=== PATIENT | female | born 1950 | race Caucasian/White ===

== ENCOUNTER 2018-09-15 22:17 | Emergency (ER) | payer MEDICARE, MEDICAID ==
[~2018-09-15] VITALS: Ht 157.4 cm; Wt 81.6 kg
--- NOTE | ~2018-09-15 | EKG ---
[place], [place] ELECTROCARDIOGRAM REPORT NAME: MELITON FREEMAN UNIT #: [id number] ROOM: DOCTOR: EPIPHANY DRAFT REPORT BIRTHDATE: [birth year] [facility] Test Date: 2018-09-15 Test Time: 23:12:36 Pat Name: MELITON FREEMAN Department: ER Room: Gender: F Demographer: 54 : 1950 Requested By: BECCA OLEARY Order Number: [id number] Reading MD: Priyank Sánchez MD Measurements Intervals [place] Rate: 95 P: 6 AR: 126 QRS: -6 QRSD: 85 T: 59 QT: 372 QTc: 468 Interpretive Statements Sinus rhythm Abnormal R-wave progression, early transition Minimal ST depression, lateral leads Electronically Signed On 09-16-2018 11:26:32 PST by Priyank Sánchez MD CM:EKGRPT:ELECTROCARDIOGRAM REPORT [id number] BECCA OLEARY MD EPIPHANY DRAFT REPORT BECCA OLEARY MD
[~2018-09-15 22:17] MED LIST: BENADRYL50 MG PO; CLARITIN10 MG PO; CLINDAMYCIN HC300 MG PO; GLIPIZIDE10 MG PO; Janumet 1000 MG1 TAB PO; KEFLEX500 MG PO; LANTUS100 U/ML SC; LIDEX0.05% T; LISINOPRIL40 MG PO; MEDROL DOSEPAK4 MG PO; NEXIUM40 MG PO; PEPCID20 MG PO; PREDNICOT20 MG PO; ULTRAM50 MG PO; VICODIN 5/500 505 MG PO
[2018-09-15] MEDS ORDERED: AMLODIPINE BESYL5 MG PO (22:24)
[2018-09-15] MEDS ORDERED: TRESIBA100 UNIT/1 SQ (22:25)
[2018-09-15 23:14] LABS: BASO % 0.3 % (0.0-1.0); EOS % 0.1 % (1.0-4.0); HEMATOCRIT 36.4 % (37.0-47.0); HEMOGLOBIN 11.4 g/dl (12.0-16.0); LYMPH # 0.8 10*3/uL (1.3-4.4); LYMPH % 10.8 % (27.0-41.0); MEAN CELL VOLUME 89.7 fl (81.0-99.0); MEAN CORPUSCULAR HGB 28.1 pg (27.0-31.0); MEAN CORPUSCULAR HGB CONC 31.3 g/dl (33.0-37.0); MEAN PLATELET VOLUME 12.2 fl (9.6-12.3); MONO # 0.1 10*3/uL (0.1-1.0); MONO % 0.8 % (3.0-9.0); NEUT # 6.3 10*3/uL (2.3-7.9); NEUT % 87.7 % (47.0-73.0); PLATELET COUNT AUTOMATED 111 10*3/uL (130-400); RED BLOOD COUNT 4.06 10*6/uL (4.10-5.10); RED CELL DISTRI WIDTH 14.6 % (0-14.5); WHITE BLOOD COUNT 7.2 10*3/uL (4.8-10.8)
[2018-09-15 23:31] LABS: ALBUMIN 3.3 gm/dl (3.1-4.5); ALKALINE PHOSPHATASE 183 U/L (45-117); BUN 15 mg/dl (7-24); CHLORIDE 103 mmol/L (98-107); CREATININE 1.54 mg/dL (0.55-1.02); SGOT/AST 66 IU/L (3-35); SGPT/ALT 73 U/L (12-78); SODIUM 135 mmol/L (136-145); TOTAL PROTEIN 7.3 gm/dL (6.4-8.2)
[2018-09-15 23:35] LABS: TROPONIN I < 0.015 ng/ml (<0.045)
[2018-09-16] MEDS ORDERED: PREDNISONE20 M1 PO (00:27)
== END 2018-09-16 00:49 | disposition home or self-care (01) ==
LOC: ED 22:17
PROVIDERS: Emergency Medicine Emergency Medical Services
DX: T78.3XXA Angioneurotic edema, initial encounter (principal); R06.02 Shortness of breath; Z88.6 Allergy status to analgesic agent; Z88.8 Allergy status to other drugs, medicaments and biological substances; Z88.5 Allergy status to narcotic agent; Z88.2 Allergy status to sulfonamides; Z79.4 Long term (current) use of insulin; Z79.84 Long term (current) use of oral hypoglycemic drugs; Z79.899 Other long term (current) drug therapy; Z90.710 Acquired absence of both cervix and uterus; Z90.49 Acquired absence of other specified parts of digestive tract